=== PATIENT | female | born 1945 | race Caucasian/White ===

== ENCOUNTER → 2016-12-19 | Outpatient (CLI) | payer BC ==
[~2016-12-19] MED LIST: LISINOPRIL; ZOLOFT
--- NOTE | ~2016-12-19 | CT3 ---
[facility] A Service of [facility] & [facility] RADIOLOGY TEXT RESULTS PATIENT: EDGAR MARINELLI LOCATION: [facility] : 47 UNIT #: [id number] AGE: [address]: Adán Fuchs MD SEX: F ORDER DR: [id number] [facility] [address]. [place], [place] [address] [id number] O MR#: [id number] Acc #: [id number] NAME: EDGAR MARINELLI : 1945 SEX: F STUDY DATE/TIME: 12/19/2016 14:28 UNIT: [facility] ROOM: STUDY DESCRIPTION: CT Abd and Pelv WWo Cont Attending Physician: Adán Fuchs M.D. Referring Physician: Adán Fuchs M.D. Ordering Physician: Adán Fuchs M.D. Primary Care Physician: Chen Fontaine A.P.R.N. MEDICAL IMAGING REPORT This report is preliminary unless electronic signature is present EXAM CT of abdomen and pelvis with and without contrast. INDICATIONS Hematuria. COMPARISON None. TECHNIQUE Initially unenhanced images were obtained through the abdomen and pelvis at 3 mm intervals. Then the patient was given 100 mL of Isovue-370 and axial 3 mm images were obtained through the abdomen in the arterial phase, 90-second delayed phase images and 5-minute delayed images were obtained through the abdomen and pelvis. Sagittal and coronal reconstructions were generated. This CT exam was performed with one or more of the following radiation dose reduction techniques: automatic exposure control, adjustment of mA and/or kV according to patient size, and iterative reconstruction. FINDINGS On the unenhanced images, there is a tiny amount of contrast being excreted into the collecting systems, possibly from a test dose. This could obscure very tiny stones, but there certainly are no stones visible. There is a 12 mm cyst in the right lobe of the liver and a 5 mm cyst in the inferior right lobe of the liver. The liver is, otherwise, normal. The gallbladder, spleen, pancreas, adrenal glands and kidneys are normal except for a 5 mm cyst in the left kidney. The aorta is normal in size and there is no adenopathy. The bowel is normal. Uterus has been removed. The bladder is normal. There are no adnexal masses. There is degenerative change in the lumbar spine. [facility]. [facility] A Service of [facility] RADIOLOGY TEXT RESULTS PATIENT: EDGAR MARINELLI LOCATION: [facility] : 47 UNIT #: [id number] AGE: [address]: Adán Fuchs MD SEX: F ORDER DR: IMPRESSION 1. No urinary stones or renal masses are identified. 2. Tiny hepatic and left renal cysts. 3. Previous hysterectomy. 4. Otherwise, normal. Dictated by... Terry Garibay M.D. THIS IS AN ELECTRONICALLY VERIFIED REPORT Terry Garibay M.D. at 12/20/2016 9:03 PM Eileen TD: 12/20/2016 20:04 JOB #: [id number] MEDICAL IMAGING REPORT Page 1 of 1 COPY
[2016-12-19 15:25] LABS: POC - CREATININE 0.94 mg/dL (0.44-1.03); POC - GFR >60.0 mL/min (>60)
== END | disposition home or self-care (01) ==
LOC: CCAT 13:16
PROVIDERS: Internal Medicine
DX: R31.29 Other microscopic hematuria (principal); Z90.710 Acquired absence of both cervix and uterus
CPT/HCPCS: 74178; 82565; Q9967